=== PATIENT | female | born 2005 | race Two or more races ===

== ENCOUNTER 2024-07-08 14:41 | Emergency (ER) | payer OTHER, MEDICAID ==
[~2024-07-08] VITALS: Ht 165.1 cm; Wt 68.5 kg
[2024-07-08] MEDS ORDERED: AUG875T PO (17:27)
[2024-07-08 17:30] VITALS: BP 136/82; PULSE 99; RESP 16; O2SAT 99
--- NOTE | 2024-07-08 17:31 | ED.PDOC ---
History of Present Illness HPI Comments 18-year-old female previously healthy presents with 4 days of worsening left ear pain and now mild right ear pain. Patient reports the pain is 6/10 it is achy in nature and she has some decreased hearing in the left ear. She denies any fever chills nausea vomiting diarrhea dysuria polyuria sick contacts chance of or recent travel Chief Complaint: Earache Time Seen by MD: 14:59 Primary Care Provider: NONE Allergies: Coded Allergies: NO KNOWN ALLERGIES (Unverified , 07/08/24) Mode of Arrival: Ambulatory All Other Systems: Reviewed and Negative Physical Exam General Appearance: Normal HEENT: Other (Bulging left tympanic membrane, erythema to the right tympanic membrane) Neck: Non-Tender, Normal Inspection Respiratory: No Respiratory Distress Cardiovascular: No Edema Breast Exam: Deferred Gastrointestinal: NOT DONE Genitalia: Deferred Pelvic: Deferred Rectal: Deferred Extremities: Normal range of motion Neurologic: No Motor Deficits Cerebellar Function: NOT DONE Reflexes: NOT DONE Skin: Dry, Normal Color, Warm Lymphatic: NOT DONE Was a procedure done? Was a procedure done?: No Differential Dx Considerations may include: Otitis media, otitis externa X-Ray, Labs, Meds, VS Vital Signs Date Time Temp Pulse Resp B/P (MAP) Pulse Ox O2 Delivery O2 Flow Rate FiO2 07/08/24 15:00 98.6 99 16 141/86 (104) 98 Time of 1ST Reevaluation: 17:29 Reevaluation 1ST: Unchanged Patient Education/Counseling: Diagnosis, Treatment Family Education/Counseling: No Family Present Departure 1 Departure Time of Disposition: 17:30 (Patient has a acute otitis media. We will discharge patient home with outpatient antibiotics.) Impression: Primary Impression: Acute otitis media Qualified Codes: H65.03 - Acute serous otitis media, bilateral Disposition: 01 HOME / SELF CARE / HOMELESS Condition: Stable Additional Instructions: You have an ear infection. You were prescribed antibiotics. Please take as directed. For pain you can take the followinam: Ibuprofen 400mg with food Noon: Acetaminophen 1000mg 4pm: Ibuprofen 400mg with food 8pm: Acetaminophen 1000mg You should follow up with your regular doctor within one week to ensure you are doing better. If your symptoms worsen or you have any other concerns then please return to the ER. e-Prescriptions Amoxicillin & Pot Clavulanate (AUGMENTIN TABLET) 875 Mg Tb 875 MG PO BID for 5 Days, #10 TAB Prov: KRYSTIAN HOLMAN MD 07/08/24 Discharged With: Self Critical Care Note Critical Care Time?: No Stability Stability form required: No KRYSTIAN HOLMAN MD Jul 08, 2024 17:31
[2024-07-08 17:47] VITALS: TEMP 98.5
[2024-07-08] MEDS: AMOXICILLIN/CLAVUL 875 MG TAB PO ONE (17:47)
[2024-07-08] MEDS: ACETAMINOPHEN 325 MG TAB PO ONE (17:47)
== END 2024-07-08 18:09 | disposition home or self-care (01) ==
LOC: ER 14:41
DX: H66.93 Otitis media, unspecified, bilateral (principal)